=== PATIENT | female | born 1970 | race African-American/Black ===

== ENCOUNTER 2018-08-13 00:25 | Emergency (ER) | payer BC, MEDICAID ==
[~2018-08-13] VITALS: Ht 170.2 cm; Wt 84.0 kg
[2018-08-13] MEDS ORDERED: METOCLOPRAMIDE HCL 10MG/2ML VIAL IV ONE (04:30)
[2018-08-13] MEDS ORDERED: KETOROLAC 15MG/ML VIAL IV ONE (04:30)
[2018-08-13] MEDS ORDERED: SODIUM CHLORIDE 0.9% 1,000 ML IV ONE (04:30)
[2018-08-13 07:30] VITALS: BP 122/87
[2018-08-13 07:58] LABS: CLARITY URINE CLOUDY (CLEAR); COLOR URINE YELLOW (YELLOW); KETONES URINE NEGATIVE (NEGATIVE); LEUKOCYTE ESTERASE URINE NEGATIVE (NEGATIVE); NITRITE URINE NEGATIVE (NEGATIVE); OCCULT BLOOD URINE NEGATIVE (NEGATIVE); PH URINE 5.5 (4.5-8.0); PROTEIN URINE NEGATIVE (NEGATIVE); SPECIFIC GRAVITY URINE 1.026 (1.005-1.030)
== END 2018-08-13 08:20 | disposition home or self-care (01) ==
LOC: ER 00:25
DX: I10 Essential (primary) hypertension (principal); F12.10 Cannabis abuse, uncomplicated; Z90.710 Acquired absence of both cervix and uterus; Z88.1 Allergy status to other antibiotic agents
CPT/HCPCS: 81003; 81025; 96374; 96375; 99283; J1885; J2765; J7030; Z7610

== ENCOUNTER 2019-05-25 10:16 | Emergency (ER) | payer BC ==
[~2019-05-25] VITALS: Ht 165.1 cm; Wt 90.0 kg
[2019-05-25 10:36] VITALS: BP 145/81
[2019-05-25] MEDS ORDERED: ACETAMINOPHEN 500MG TABLET PO ONE (11:45)
== END 2019-05-25 14:36 | disposition home or self-care (01) ==
LOC: ER 10:16
DX: M79.671 Pain in right foot (principal); I10 Essential (primary) hypertension; Z88.1 Allergy status to other antibiotic agents; Z90.710 Acquired absence of both cervix and uterus
CPT/HCPCS: 73630; 99283